=== PATIENT | male | born 1935 | race Caucasian/White ===

== ENCOUNTER → 2022-07-09 11:47 | Outpatient (CLI) | payer OTHER, SELFPAY ==
--- NOTE | 2022-07-09 11:50 | DI.CT.S_ITS ---
PROCEDURE: CT CHEST ABD PEL W CON INDICATIONS: ABNORMAL WEIGHT LOSS TECHNIQUE: After the administration of oral and intravenous contrast, axial sections acquired from the supraclavicular neck to the pubic symphysis. Coronal and sagittal reformats were performed. For radiation dose reduction, the following was used: automated exposure control, adjustment of mA and/or kV according to patient size. COMPARISON:None. FINDINGS: Image quality: Excellent. CHEST: Lower Neck: No enlarged lymph nodes. Thyroid: Unremarkable Axillae: No enlarged lymph nodes. Chest Wall: Unremarkable. Lungs and Airways: Scattered scarring. Dependent atelectasis. Small emphysema. There are small pulmonary nodules, for example in the lingula measuring 3-4 mm (3/144). Pleura: No pneumothorax or pleural effusions. Heart: Coronary artery calcifications. Thoracic Vessels: Atherosclerotic calcifications. 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 Mediastinum and Cristina: No enlarged lymph nodes. Esophagus: Patulous with a small hiatal hernia and suspected reflux. ABDOMEN: Liver: Unremarkable. Gallbladder: Fundal wall thickening with either calcifications or hyperemia. Biliary ducts: Unremarkable. Pancreas: Unremarkable. Spleen: Small splenic granulomas. Adrenal Glands: Unremarkable. Kidneys and Ureters: Right inferior pole cyst. Subcentimeter lesions are too small to characterize. Stomach and Bowel: Stomach, small bowel loops, and colon are unremarkable. Peritoneum: No abnormal intraperitoneal fluid. No free air. Ventral Wall: Small fat containing umbilical hernia Abdominal Nodes: No retroperitoneal or mesenteric adenopathy by size criteria. Vessels: [id number] atherosclerotic disease. PELVIS: Pelvic Organs: Multiple pelvic clips. Prostatectomy. Bladder: Unremarkable. Pelvic Nodes: No enlarged lymph nodes. Miscellaneous: No inguinal hernias are seen. Bones: Scattered degenerative changes. Indeterminate is small sclerotic lesion in the left sacrum, possibly a bone island. Otherwise no suspicious or acute osseous abnormality. Age-indeterminate height loss of some vertebral bodies. IMPRESSION: No definite malignancy identified. Small pulmonary nodules are present which can be followed with optional chest CT in 1 year for high risk patients. Patulous esophagus with suspected reflux and small hiatal hernia. Possible gallbladder wall calcifications. Consider non emergent evaluation with ultrasound. Other incidental and probably chronic findings as above. There are pelvic clips likely related to lymph node dissection and prostatectomy. Dictated by: Davis Price M.D. on 07/09/2022 at 16:12 Approved by: Davis Price M.D. on 07/09/2022 at 16:22
[2022-07-09 13:58] LABS: Estimated Glomerular Filt Rate > 60 mL/min (>60)
== END ==
PROVIDERS: PCP Internal Medicine; Referring Provider Internal Medicine; Visit Provider Internal Medicine
DX: K22.89 Other specified disease of esophagus (principal); K21.9 Gastro-esophageal reflux disease without esophagitis; R91.8 Other nonspecific abnormal finding of lung field; R63.4 Abnormal weight loss; R53.83 Other fatigue
CPT/HCPCS: 36415; 71260; 74177; 82565; Q9967

== ENCOUNTER → 2022-08-24 12:56 | Outpatient (CLI) | payer OTHER, SELFPAY ==
--- NOTE | 2022-08-24 | DI.NM.S_ITS ---
PROCEDURE: NM BONE SCAN WHOLE BODY RADIOPHARMACEUTICAL: 21.9 mCi Tc-99m MDP IV. INDICATIONS: other disorders of bone development and growth TECHNIQUE: Delayed whole-body scintigrams were obtained approximately 3-4 hours after intravenous injection of radiotracer. Anterior and posterior views were acquired from vertex to feet. COMPARISON: [facility], CT, CT CHEST ABD PEL W CON, 07/09/2022, 14:22. FINDINGS: Physiologic uptake is noted within the kidneys and bladder. Areas of uptake are noted within the small bones of the feet, knees as well as shoulders suggestive of degenerative change. Focus of increased uptake is noted in the left 1st toe noting recent history of trauma to this region. Scattered areas of uptake are noted within the cervical, thoracic and lumbar spine. No uptake is identified within the sacrum corresponding to area of sclerosis on recent CT exam. IMPRESSION: Multifocal areas of uptake within the spine overall nonspecific. These are suspected to be related to degenerative change. However, metastatic disease cannot be definitively excluded. Increased uptake in the left 1st toe likely related to recent history of trauma. Dictated by: Kaye Mondragon M.D. on 08/24/2022 at 17:18 Approved by: Kaye Mondragon M.D. on 08/24/2022 at 17:21
== END ==
PROVIDERS: PCP Internal Medicine; Referring Provider Internal Medicine; Visit Provider Internal Medicine
DX: M89.20 Other disorders of bone development and growth, unspecified site (principal)
CPT/HCPCS: 78306; A9503